=== PATIENT | male | born 1985 | race Two or more races ===

== ENCOUNTER 2017-10-26 17:21 | Emergency (ER) | payer SELFPAY ==
[2017-10-26 17:27] VITALS: BP 116/66; BMI 29.1
--- NOTE | 2017-10-26 18:47 | DR.ABDMALE ---
HPI - PCP Primary Care Physician: NFD - Complaint Chief Complaint:: PT C/O ABD PAIN THAT STARTED ON 4-5 DAYS AGO, ,PT DENIES ANY N /V/D PT SPEAKS BROKEN WOLOF PT C/O ABD SWELLILNG.. 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 .BR - Reviewed Nurses Notes Review: Yes - Mode of arrival Mode of Arrival: Ambulatory - Timing Onset of Chief Complaint: 10/22/17 PMH - PMH Past Medical History: No Past Surgical History: No - Family History History of Family Medical Conditions: No - Social History Does patient currently use any type of tobacco product: No Have you used tobacco products in the last 12 months: No Type of Tobacco Use: None Does any household member use tobacco: No Alcohol Use: None Do you use any recreational Drugs:: No Lives With: Family Lives Where: Home - infectious screening In the last 2 months have you had wt loss of >10#?: NO Have you had fever, night sweats or hemotysis?: No Have you traveled outside the country in the last 6 months?: No Isolation: Standard PE - Vital Signs Vital Signs: Temp Pulse Resp BP Pulse Ox 10/26/17 17:23 98.0 F 79 18 116/66 98 ROR - Labs Reviewed Result Diagrams: 10/26/17 18:53 10/26/17 18:53 Laboratory: WBC 8.5 X10^3/uL (3.6-10.0) 10/26/17 18:53 RBC 5.06 X10^6/uL (4.7-6.0) 10/26/17 18:53 Hgb 15.7 g/dL (13.5-18.0) 10/26/17 18:53 Hct 44.6 % (42.0-54.0) 10/26/17 18:53 MCV 88.2 fL (80.0-100.0) 10/26/17 18:53 MCH 31.1 pg (27.0-34.0) 10/26/17 18:53 MCHC 35.2 g/dL (33.0-35.0) H 10/26/17 18:53 RDW 12.9 % (11.6-16.5) 10/26/17 18:53 Plt Count 270 X10^3/uL (150.0-450.0) 10/26/17 18:53 MPV 7.1 fL (7.4-11.0) L 10/26/17 18:53 Neut % (Auto) 66.3 % (42.0-75.0) 10/26/17 18:53 Lymph % (Auto) 25.4 % (21.0-51.0) 10/26/17 18:53 [place] % (Auto) 5.9 % (0.0-13.0) 10/26/17 18:53 Eos % (Auto) 1.4 % (0.9-2.9) 10/26/17 18:53 Baso % (Auto) 1.0 % (0.2-1.0) 10/26/17 18:53 Neut # (Auto) 5.6 x10^3/uL (2.2-4.8) H 10/26/17 18:53 Lymph # (Auto) 2.2 X10^3/uL (1.3-2.9) 10/26/17 18:53 [place] # (Auto) 0.5 x10^3/uL (0.3-0.8) 10/26/17 18:53 Eos # (Auto) 0.1 x10^3/uL (0.0-0.2) 10/26/17 18:53 Baso # (Auto) 0.1 X10^3/uL (0.0-0.1) 10/26/17 18:53 Absolute Nucleated RBC 0.0 /100WBC 10/26/17 18:53 Sodium 141 mmol/L (136-145) 10/26/17 18:53 Corrected Sodium TNP 10/26/17 18:53 Potassium 4.0 mmol/L (3.5-5.1) 10/26/17 18:53 Chloride 105 mmol/L (98-107) 10/26/17 18:53 Carbon Dioxide 28.0 mmol/L (21-32) 10/26/17 18:53 BUN 14 mg/dL (7-18) 10/26/17 18:53 Creatinine 0.85 mg/dL (0.70-1.30) 10/26/17 18:53 Est GFR (MDRD) Af Amer > 60 (>60) 10/26/17 18:53 Est GFR (MDRD) Non-Af > 60 (>60) 10/26/17 18:53 Glucose 101 mg/dL (65-99) H 10/26/17 18:53 Calcium 8.7 mg/dL (8.5-10.1) 04 18:53 Corrected Calcium TNP 10/26/17 18:53 Total Bilirubin 0.20 mg/dL (0.2-1.0) 10/26/17 18:53 AST 17 Units/L (15-37) 10/26/17 18:53 ALT 38 Units/L (12-78) 10/26/17 18:53 Alkaline Phosphatase 84 Units/L (46-116) 10/26/17 18:53 Total Protein 8.0 g/dL (6.4-8.2) 10/26/17 18:53 Albumin 4.1 g/dL (3.4-5.0) 10/26/17 18:53 Globulin 3.9 g/dL (2.5-4.5) 10/26/17 18:53 Albumin/Globulin Ratio 1.1 Ratio (1.1-2.1) 10/26/17 18:53 Amylase 65 Units/L (25-115) 10/26/17 18:53 Lipase 114 Units/L (73-393) 10/26/17 18:53 Specimen Type Clean catch urine 10/26/17 19:59 Urine Color Yellow (YELLOW) 10/26/17 19:59 Urine Appearance Clear (CLEAR) 10/26/17 19:59 Urine pH 6.0 (5.0 - 8.0) 10/26/17 19:59 Ur Specific [place] 1.015 (1.000-1.030) 10/26/17 19:59 Urine Protein Negative (NEGATIVE) 10/26/17 19:59 Urine Glucose (UA) Negative (NEGATIVE) 10/26/17 19:59 Urine Ketones Negative (NEGATIVE) 10/26/17 19:59 Urine Occult Blood Negative (NEGATIVE) 10/26/17 19:59 Urine Nitrite Negative (NEGATIVE) 10/26/17 19:59 Urine Bilirubin Negative (NEGATIVE) 10/26/17 19:59 Urine Urobilinogen Normal (NORMAL) 10/26/17 19:59 Ur Leukocyte Esterase Negative (NEGATIVE) 10/26/17 19:59 H. pylori IgG Antibody Negative (NEGATIVE) 10/26/17 18:53 - Diagnosis Discharge Problem: Abdominal pain Qualifiers: Abdominal location: epigastric Qualified Code(s): R10.13 - Epigastric pain - Discharge Plan Disposition: 01 HOME, SELF-CARE Condition: Stable Prescriptions: Ketorolac Tromethamine [Toradol Tab] 10 mg PO Q8H PRN #15 tab PRN Reason: Pain Ranitidine HCl [ZANTAC TAB 150 MG *] 150 mg PO BID #30 tab - Follow ups/Referrals Follow ups/Referrals: NFD,None [Primary Care Provider] - 2 days Bipin Zhao [STAFF PHYSICIAN] - 2 days - Instructions Instructions: Abdominal Pain, Adult, [id number] Additional Instructions: RETURN TO ED IF WORSE.
[2017-10-26 19:09] LABS: BASOPHILS # (AUTO) 0.1 X10^3/uL (0.0-0.1); EOSINOPHILS # (AUTO) 0.1 x10^3/uL (0.0-0.2); EOSINOPHILS % (AUTO) 1.4 % (0.9-2.9); HEMATOCRIT 44.6 % (42.0-54.0); HEMOGLOBIN 15.7 g/dL (13.5-18.0); LYMPHOCYTES # (AUTO) 2.2 X10^3/uL (1.3-2.9); LYMPHOCYTES % (AUTO) 25.4 % (21.0-51.0); MEAN CORPUSCULAR HEMOGLOBIN 31.1 pg (27.0-34.0); MEAN CORPUSCULAR HGB CONC 35.2 g/dL (33.0-35.0); MEAN CORPUSCULAR VOLUME 88.2 fL (80.0-100.0); MEAN PLATELET VOLUME 7.1 fL (7.4-11.0); MONOCYTES # (AUTO) 0.5 x10^3/uL (0.3-0.8); MONOCYTES % (AUTO) 5.9 % (0.0-13.0); NEUTROPHILS # (AUTO) 5.6 x10^3/uL (2.2-4.8); NEUTROPHILS % (AUTO) 66.3 % (42.0-75.0); PLATELET COUNT 270 X10^3/uL (150.0-450.0); RED BLOOD COUNT 5.06 X10^6/uL (4.7-6.0); RED CELL DISTRIBUTION WIDTH 12.9 % (11.6-16.5); WHITE BLOOD COUNT 8.5 X10^3/uL (3.6-10.0)
[2017-10-26 19:33] LABS: ALANINE AMINOTRANSFERASE 38 Units/L (12-78); ALBUMIN 4.1 g/dL (3.4-5.0); ALKALINE PHOSPHATASE 84 Units/L (46-116); AMYLASE 65 Units/L (25-115); ASPARTATE AMINO TRANSFERASE 17 Units/L (15-37); BLOOD UREA NITROGEN 14 mg/dL (7-18); CALCIUM 8.7 mg/dL (8.5-10.1); CHLORIDE 105 mmol/L (98-107); CREATININE 0.85 mg/dL (0.70-1.30); LIPASE 114 Units/L (73-393); SODIUM 141 mmol/L (136-145); eGFR BLACK RACES > 60 (>60); eGFR NON BLACK RACES > 60 (>60)
--- NOTE | 2017-10-26 19:37 | RAD ---
Acute abdominal series Indication: Abdominal pain Comparison: None available Findings: The trachea is midline. The cardiac silhouette is unremarkable. The lungs are clear without focal i nfiltrate or effusion. The bony thorax is unremarkable. Flat and upright evaluation of the abdomen demonstrates a normal bowel gas pattern. No pathological soft tissue mass or calcification can be observed. The bony structures are grossly intact. IMPRESSION: 1. No acute cardiopulmonary disease. 2. No evidence for acute abdominal pathology identified. Reported By:
[2017-10-26 20:21] LABS: BILIRUBIN,URINE NEGATIVE (NEGATIVE); BLOOD/HEMOGLOBIN,URINE NEGATIVE (NEGATIVE); GLUCOSE, URINE NEGATIVE (NEGATIVE); KETONES,URINE NEGATIVE (NEGATIVE); LEUKOCYTE ESTERASE ,URINE NEGATIVE (NEGATIVE); NITRITES,URINE NEGATIVE (NEGATIVE); PROTEIN,URINE NEGATIVE (NEGATIVE); UROBILINOGEN,URINE NORMAL (NORMAL)
[2017-10-26 20:28] LABS: APPEARANCE,URINE CLEAR (CLEAR); COLOR,URINE YELLOW (YELLOW)
== END 2017-10-26 21:12 | disposition home or self-care (01) ==
LOC: ER 17:31
DX: R10.13 Epigastric pain (principal)
CPT/HCPCS: 36415; 74022; 80053; 81003; 82150; 83690; 85025; 86677; 99283

== ENCOUNTER 2017-11-17 12:18 | Emergency (ER) | payer SELFPAY ==
[2017-11-17 12:24] VITALS: BP 127/72; BMI 25.7
--- NOTE | 2017-11-17 15:33 | DR.GENAD ---
HPI - PCP Primary Care Physician: NFGene - HPI Comment HPI Comment: ABDOMINAL PAIN ON AN D OFF FOR FWE MONTHS. NOW RED BLOOD IN STOOL NOTED. NO HEMORRHOIDS. DENIES N/V.. SPOKE WITH PATIENT THROUGH [employer] PRES[employer]ACTICE [employer]NER. - Complaint/Symptoms Chief Complaint Doctors Comments: BLOOD IN STOOL NOTED TODAY. Chief Complaint:: PT C/O 4 MONTH HISTORY OF SMALL AMOUNT OF BRIGHT RED BLOOD IN STOOL - Nurses notes reviewed Nurses Notes Review: Yes - Source History Provided: Patient - Mode of Arrival Mode of Arrival: Ambulatory - Timing Onset of Chief Complaint: 11/17/17 Came on: Gradually - Duration Duration: Since Onset Duration: Days - Severity Severity: Moderate PMH - PMH Past Medical History: No Past Surgical History: No - Family History History of Family Medical Conditions: No - Social History Does patient currently use any type of tobacco product: No Have you used tobacco products in the last 12 months: No Type of Tobacco Use: None Does any household member use tobacco: No Alcohol Use: None Do you use any recreational Drugs:: No Lives With: Friend Lives Where: Home - infectious screening In the last 2 months have you had wt loss of >10#?: NO Have you had fever, night sweats or hemotysis?: No Have you traveled outside the country in the last 6 months?: No Isolation: Standard ROS - Review of Systems Constitutional: No Symptoms Reported Eyes: No Symptoms Reported ENTM: No Symptoms Reported Respiratoy: No Symptoms Reported Cardiovascular: No Symptoms Reported Gastrointestinal/Abdominal: Other (BLOOD IN STOOL.) Genitourinary: Bleeding (BLOOD IN STOOL.) Neurological: negative: Weakness, Dizziness Musculoskeletal: No Symptoms Reported Integumentary: No Symptoms Reported Hematologic/Lymphatic: No Symptoms Reported Endocrine: No Symptoms Reported All Other Systems: Reviewed and Negative PE - Vital Signs Vitals: Temperature 97.9 F Pulse Rate 64 Respiratory Rate 22 Blood Pressure 127/72 O2 Sat by Pulse Oximetry 98 - General Limitations: No Limitations General Appearance: Alert - Head Head Exam: Normal Inspection - Eyes Eye exam: Normal Appearance - ENT ENT Exam: Normal External Ear Exam External Ear Exam: Normal External Inspection TM/Canal Exam: Bilateral Normal Nose Exam: Normal Nose Exam Mouth Exam: Normal Inspection Throat Exam: Normal Inspection - Neck Neck Exam: Trachea Midline - Chest Chest Inspection: Symmetric Chest Wall Rise - Respiratory Respiratory Exam: Normal Lung Sounds Bilat Respiratory Exam: Bilateral Clear to Auscultation - Cardiovascular Cardiovascular Exam: Regular Rate, Normal Rhythm, Normal Heart Sounds - Abdominal Exam Abdominal Exam: Normal Bowel Sounds, Soft. negative: Tenderness - Extremities Extremities Exam: Normal Inspection - Back Back Exam: Normal Inspection - Neurologic Neurological Exam: Alert, Oriented X3 - Psychiatric Psychiatric Exam: Normal Affect, Normal Mood - Skin Skin Exam: Normal Color MDM - Differential Diagnosis Differential Diagnosis: GI BLEEDING. Course - Treatment Treatment: SEE ORDERS. - Education/Counseling Education/Counseling: Patient, Education Educated On: Diagnosis, Needs for Follow Up ROR - Labs Reviewed Laboratory Results Reviewed?: Yes Result Diagrams: 11/17/17 15:40 11/17/17 15:40 Laboratory: WBC 7.5 X10^3/uL (3.6-10.0) 11/17/17 15:40 RBC 4.93 X10^6/uL (4.7-6.0) 11/17/17 15:40 Hgb 15.6 g/dL (13.5-18.0) 11/17/17 15:40 Hct 43.6 % (42.0-54.0) 11/17/17 15:40 MCV 88.6 fL (80.0-100.0) 11/17/17 15:40 MCH 31.7 pg (27.0-34.0) 11/17/17 15:40 MCHC 35.8 g/dL (33.0-35.0) H 11/17/17 15:40 RDW 12.8 % (11.6-16.5) 11/17/17 15:40 Plt Count 256 X10^3/uL (150.0-450.0) 11/17/17 15:40 MPV 7.3 fL (7.4-11.0) L 11/17/17 15:40 Neut % (Auto) 64.2 % (42.0-75.0) 11/17/17 15:40 Lymph % (Auto) 24.9 % (21.0-51.0) 11/17/17 15:40 [place] % (Auto) 8.0 % (0.0-13.0) 11/17/17 15:40 Eos % (Auto) 2.4 % (0.9-2.9) 11/17/17 15:40 Baso % (Auto) 0.5 % (0.2-1.0) 11/17/17 15:40 Neut # (Auto) 4.8 x10^3/uL (2.2-4.8) 11/17/17 15:40 Lymph # (Auto) 1.9 X10^3/uL (1.3-2.9) 11/17/17 15:40 [place] # (Auto) 0.6 x10^3/uL (0.3-0.8) 11/17/17 15:40 Eos # (Auto) 0.2 x10^3/uL (0.0-0.2) 11/17/17 15:40 Baso # (Auto) 0.0 X10^3/uL (0.0-0.1) 11/17/17 15:40 Absolute Nucleated RBC 0.3 /100WBC 11/17/17 15:40 Sodium 139 mmol/L (136-145) 11/17/17 15:40 Corrected Sodium TNP 11/17/17 15:40 Potassium 4.0 mmol/L (3.5-5.1) 11/17/17 15:40 Chloride 103 mmol/L (98-107) 11/17/17 15:40 Carbon Dioxide 27.8 mmol/L (21-32) 11/17/17 15:40 BUN 17 mg/dL (7-18) 11/17/17 15:40 Creatinine 0.89 mg/dL (0.70-1.30) 11/17/17 15:40 Est GFR (MDRD) Af Amer > 60 (>60) 11/17/17 15:40 Est GFR (MDRD) Non-Af > 60 (>60) 11/17/17 15:40 Glucose 88 mg/dL (65-99) 11/17/17 15:40 Calcium 9.1 mg/dL (8.5-10.1) 11/17/17 15:40 Corrected Calcium TNP 11/17/17 15:40 Total Bilirubin 0.40 mg/dL (0.2-1.0) 11/17/17 15:40 AST 21 Units/L (15-37) 11/17/17 15:40 ALT 46 Units/L (12-78) 11/17/17 15:40 Alkaline Phosphatase 80 Units/L (46-116) 11/17/17 15:40 Total Protein 8.1 g/dL (6.4-8.2) 11/17/17 15:40 Albumin 4.1 g/dL (3.4-5.0) 11/17/17 15:40 Globulin 4.0 g/dL (2.5-4.5) 11/17/17 15:40 Albumin/Globulin Ratio 1.0 Ratio (1.1-2.1) L 11/17/17 15:40 - Diagnosis Discharge Problem: GI bleeding Qualifiers: GI bleed type/associated pathology: unspecified gastrointestinal hemorrhage type Qualified Code(s): K92.2 - Gastrointestinal hemorrhage, unspecified - Discharge Plan Disposition: HOME, SELF-CARE Condition: Stable Prescriptions: Ranitidine HCl [ZANTAC TAB 150 MG *] 150 mg PO BID #60 tab - Follow ups/Referrals Follow ups/Referrals: NFD,None [Primary Care Provider] - 3 days ALAINA LICEA [STAFF PHYSICIAN] - 1 day - Instructions Instructions: Gastrointestinal Bleeding, [id number] Additional Instructions: RETURN TO ED IF WORSE.
[2017-11-17 16:08] LABS: BASOPHILS % (AUTO) 0.5 % (0.2-1.0); EOSINOPHILS # (AUTO) 0.2 x10^3/uL (0.0-0.2); EOSINOPHILS % (AUTO) 2.4 % (0.9-2.9); HEMATOCRIT 43.6 % (42.0-54.0); HEMOGLOBIN 15.6 g/dL (13.5-18.0); LYMPHOCYTES # (AUTO) 1.9 X10^3/uL (1.3-2.9); LYMPHOCYTES % (AUTO) 24.9 % (21.0-51.0); MEAN CORPUSCULAR HEMOGLOBIN 31.7 pg (27.0-34.0); MEAN CORPUSCULAR HGB CONC 35.8 g/dL (33.0-35.0); MEAN CORPUSCULAR VOLUME 88.6 fL (80.0-100.0); MEAN PLATELET VOLUME 7.3 fL (7.4-11.0); MONOCYTES # (AUTO) 0.6 x10^3/uL (0.3-0.8); NEUTROPHILS # (AUTO) 4.8 x10^3/uL (2.2-4.8); NEUTROPHILS % (AUTO) 64.2 % (42.0-75.0); PLATELET COUNT 256 X10^3/uL (150.0-450.0); RED BLOOD COUNT 4.93 X10^6/uL (4.7-6.0); RED CELL DISTRIBUTION WIDTH 12.8 % (11.6-16.5); WHITE BLOOD COUNT 7.5 X10^3/uL (3.6-10.0)
[2017-11-17 16:10] LABS: ALANINE AMINOTRANSFERASE 46 Units/L (12-78); ALBUMIN 4.1 g/dL (3.4-5.0); ALKALINE PHOSPHATASE 80 Units/L (46-116); ASPARTATE AMINO TRANSFERASE 21 Units/L (15-37); BLOOD UREA NITROGEN 17 mg/dL (7-18); CALCIUM 9.1 mg/dL (8.5-10.1); CARBON DIOXIDE 27.8 mmol/L (21-32); CHLORIDE 103 mmol/L (98-107); CREATININE 0.89 mg/dL (0.70-1.30); SODIUM 139 mmol/L (136-145); TOTAL PROTEIN 8.1 g/dL (6.4-8.2); eGFR BLACK RACES > 60 (>60); eGFR NON BLACK RACES > 60 (>60)
== END 2017-11-17 17:37 | disposition home or self-care (01) ==
LOC: ER 12:36
DX: K92.2 Gastrointestinal hemorrhage, unspecified (principal)
CPT/HCPCS: 36415; 80053; 85025; 99282